=== PATIENT | male | born 2000 | race Caucasian/White ===

== ENCOUNTER 2023-01-23 19:38 | Emergency (ER) | payer SELFPAY ==
[2023-01-23] MEDS ORDERED: Cyclobenzaprine 10 MG TAB ONE (20:20)
[2023-01-23] MEDS ORDERED: Magnesium Oxide 400 MG TAB ONE (20:20)
== END 2023-01-23 20:39 | disposition home or self-care (01) ==
LOC: MADERS 19:38
DX: S39.012A Strain of muscle, fascia and tendon of lower back, initial encounter (principal); F17.290 Nicotine dependence, other tobacco product, uncomplicated; Y93.89 Activity, other specified
CPT/HCPCS: 99283